=== PATIENT | male | born 1960 | race Caucasian/White ===

== ENCOUNTER 2016-11-10 02:09 | Emergency (ER) | payer BC ==
[2016-11-10 02:18] VITALS: BP 159/95
[2016-11-10] MEDS ORDERED: Sodium Chloride 0.9% 10 ML Syringe FLUSH PRN (02:20)
--- NOTE | 2016-11-10 02:28 | EDM.PDOC ---
ED HPI GENERAL MEDICAL PROBLEM - General Chief Complaint: Flank Pain Stated Complaint: RIGHT SIDE PAIN Time Seen by Provider: 11/10/16 02:17 Source of Information: Reports: Patient History Limitations: Reports: No Limitations - History of Present Illness INITIAL COMMENTS - FREE TEXT/NARRATIVE: The patient presents with right flank pain. This started at home and it is gone now. He has had many stones in the past but none lately. He had some nausea but that is gone. He has no fever, chills, cough, congestion, chest pain or shortness of breath. He has no dysuria or hematuria. Onset: Sudden Duration: Hour(s): Location: Reports: Back (right flank) Quality: Reports: Sharp Severity: Severe Improves with: Reports: None Worsens with: Reports: None Associated Symptoms: Reports: Nausea/Vomiting. Denies: Chest Pain, Cough, Fever /Chills, Shortness of Breath - Related Data Allergies Allergy/AdvReac Type Severity Reaction Status Date / Time Penicillins Allergy Cannot Verified 11/10/16 02:18 Remember Past Medical History Genitourinary History: Reports: Renal Calculus - Past Surgical History GI Surgical History: Reports: Appendectomy Male Surgical History: Reports: None Social & Family History - Tobacco Use Smoking Status *Q: Current Every Day Smoker Years of Tobacco use: 20 Packs/Tins Daily: 0.5 Used Tobacco, but Quit: No Second Hand Smoke Exposure: No - Caffeine Use Caffeine Use: Reports: Coffee - Recreational Drug Use Recreational Drug Use: No ED ROS GENERAL - Review of Systems Review Of Systems: See Below Constitutional: Reports: No Symptoms HEENT: Reports: No Symptoms Respiratory: Reports: No Symptoms Cardiovascular: Reports: No Symptoms Endocrine: Reports: No Symptoms GI/Abdominal: Reports: Nausea. Denies: Abdominal Pain, Vomiting : Reports: Flank Pain (Right) Musculoskeletal: Reports: No Symptoms ED EXAM, RENAL/ - Physical Exam Exam: See Below Exam Limited By: No Limitations General Appearance: Alert, No Apparent Distress Ears: Normal External Exam Nose: Normal Inspection Head: Atraumatic, Normocephalic Neck: Normal Inspection Respiratory/Chest: No Respiratory Distress, Lungs Clear, Normal Breath Sounds Cardiovascular: Regular Rate, Rhythm, No Edema, No Murmur GI/Abdominal: Soft, Non-Tender, No Organomegaly, No Mass Course - Vital Signs Last Recorded V/S: Last Vital Signs Temp 98.1 F 11/10/16 02:13 Pulse 90 11/10/16 02:13 Resp 20 11/10/16 02:13 BP 159/95 H 11/10/16 02:13 Pulse Ox 96 11/10/16 02:13 - Orders/Labs/Meds Orders: Active Orders 24 hr Category Date Time Status Peripheral IV Care [RC] . DIRECTED Care 11/10/16 02:21 Active Abdomen Pelvis wo Cont [CT] Stat Exams 11/10/16 02:20 Taken Sodium Chloride 0.9% [Normal Saline] 1,000 ml Med 11/10/16 02:30 Active IV ASDIRECTED Sodium Chloride 0.9% [Saline Flush] Med 11/10/16 02:20 Active 10 ml FLUSH ASDIRECTED PRN Peripheral IV Insertion Adult [OM.PC] Stat Oth 11/10/16 02:20 Ordered Medication Orders Sodium Chloride (Normal Saline) 1,000 mls @ 125 mls/hr IV ASDIRECTED CHERIE Last Admin: 11/10/16 02:34 Dose: 125 mls/hr Sodium Chloride (Saline Flush) 10 ml FLUSH ASDIRECTED PRN PRN Reason: Keep Vein Open Last Admin: 11/10/16 02:33 Dose: 10 ml Labs: Laboratory Tests 11/10/16 11/10/16 11/10/16 Range/Units 02:35 02:35 03:03 WBC 9.29 H (4.23-9.07) K/mm3 RBC 5.23 (4.63-6.08) M/mm3 Hgb 15.5 (13.7-17.5) gm/L Hct 46.0 (40.1-51.0) % MCV 88.0 (79.0-92.2) fl MCH 29.6 (25.7-32.2) pg MCHC 33.7 (32.2-35.5) g/dl RDW Std Deviation 45.2 H (35.1-43.9) fL Plt Count 185 (163-337) K/mm3 MPV 10.1 (9.4-12.3) fl Neut % (Auto) 59.3 (34.0-67.9) % Lymph % (Auto) 26.0 (21.8-53.1) % [place] % (Auto) 10.2 (5.3-12.2) % Eos % (Auto) 3.1 (0.8-7.0) Baso % (Auto) 0.9 (0.1-1.2) % Neut # (Auto) 5.50 H (1.78-5.38) K/mm3 Lymph # (Auto) 2.42 (1.32-3.57) K/mm3 [place] # (Auto) 0.95 H (0.30-0.82) K/mm3 Eos # (Auto) 0.29 (0.04-0.54) K/mm3 Baso # (Auto) 0.08 (0.01-0.08) K/mm3 Sodium 142 (136-145) mEq/L Potassium 3.8 (3.5-5.1) mEq/L Chloride 106 (98-107) mEq/L Carbon Dioxide 26 (21-32) mEq/L Anion Gap 13.8 (5-15) BUN 12 (7-18) mg/dL Creatinine 1.3 (0.7-1.3) mg/dL Est Cr Clr Drug Dosing 69.19 mL/min Estimated GFR (MDRD) 58 (>60) mL/min BUN/Creatinine Ratio 9.2 L (14-18) Glucose 121 H (74-106) mg/dL Calcium 9.6 (8.5-10.1) mg/dL Total Bilirubin 0.5 (0.2-1.0) mg/dL AST 36 (15-37) U/L ALT 66 H (16-63) U/L Alkaline Phosphatase 55 (46-116) U/L Total Protein 7.8 (6.4-8.2) g/dl Albumin 3.8 (3.4-5.0) g/dl Globulin 4.0 gm/dL Albumin/Globulin Ratio 1.0 (1-2) Lipase 140 (73-393) U/L Urine Color Yellow (Yellow) Urine Appearance Clear (Clear) Urine pH 6.0 (5.0-8.0) Ur Specific [place] 1.025 (1.005-1.030) Urine Protein Negative (Negative) Urine Glucose (UA) Negative (Negative) Urine Ketones Negative (Negative) Urine Occult Blood 2+ H (Negative) Urine Nitrite Negative (Negative) Urine Bilirubin Negative (Negative) Urine Urobilinogen 0.2 (0.2-1.0) Ur Leukocyte Esterase Negative (Negative) Urine RBC 10-20 H (0-5) /hpf Urine WBC 0-5 (0-5) /hpf Ur Epithelial Cells Not Reportable Ur Squamous Epith Cells 5-10 H (0-5) /hpf Urine Bacteria Rare (FEW) /hpf Urine Mucus Few (FEW) /hpf Meds: Medications Generic Name Dose Route Start Last Admin Trade Name Freq PRN Reason Stop Dose Admin Sodium Chloride 1,000 mls @ 125 mls/hr 11/10/16 02:30 11/10/16 02:34 Normal Saline IV 125 mls/hr ASDIRECTED CHERIE Administration Sodium Chloride 10 ml 11/10/16 02:20 11/10/16 02:33 Saline Flush FLUSH 10 ml ASDIRECTED PRN Administration Keep Vein Open - Re-Assessments/Exams Free Text/Narrative Re-Assessment/Exam: 11/10/16 02:27 I ordered an IV NS at 125ml/hr, labs, UA and a CT of his abdomen and pelvis. 11/10/16 03:38 His WBC was slightly elevated at 9.29. His CMP looks good. His UA shows blood and he did pass a stone. His CT shows fatty liver, small nonobstructing renal calculi, 4mm right lower lobe pulmonary nodule, small right renal cyst, and prostetic hypertrophy. He feels good. now. I will discharge him home. Departure - Departure Time of Disposition: 03:40 Disposition: Home, Self-Care 01 Condition: good Clinical Impression: Kidney stone on right side, Ureteric colic - Discharge Information Referrals: Roxann Davalos, [employer]IST [Primary Care Provider] - Forms: ED Department Discharge, Return to Work/School Form Additional Instructions: Drink plenty of fluids. Please return if you are worse. - My Orders Last 24 Hours: My Active Orders 11/10/16 02:20 Abdomen Pelvis wo Cont [CT] Stat Sodium Chloride 0.9% [Saline Flush] 10 ml FLUSH ASDIRECTED PRN Peripheral IV Insertion Adult [OM.PC] Stat 11/10/16 02:21 Peripheral IV Care [RC] . DIRECTED 11/10/16 02:30 Sodium Chloride 0.9% [Normal Saline] 1,000 ml IV ASDIRECTED - Assessment/Plan Last 24 Hours: My Active Orders 11/10/16 02:20 Abdomen Pelvis wo Cont [CT] Stat Sodium Chloride 0.9% [Saline Flush] 10 ml FLUSH ASDIRECTED PRN Peripheral IV Insertion Adult [OM.PC] Stat 11/10/16 02:21 Peripheral IV Care [RC] . DIRECTED 11/10/16 02:30 Sodium Chloride 0.9% [Normal Saline] 1,000 ml IV ASDIRECTED
[2016-11-10] MEDS ORDERED: Sodium Chloride 0.9% 1,000 ML IV SCH (02:30)
--- NOTE | 2016-11-10 08:02 | CT ---
CT abdomen and pelvis Technique: Multiple axial sections were obtained from above the dome of the diaphragm inferiorly through the pubic symphysis. Intravenous and oral contrast not utilized. Study has been performed as a ureteral stone protocol. Findings: Cyst is identified within the upper right kidney measuring approximately 2.3 cm. Two nonobstructing calculi noted within the right kidney with largest measuring about 4 mm. No abnormal calcifications are seen within the left kidney. Ureters show no dilatation. No ureteral calculi are seen. Calcified nodule noted within the right lung base compatible with granuloma. Fatty infiltration seen throughout the liver. Spleen appears within normal limits. Adrenal glands show no nodule. Pancreas is within normal limits. Aorta shows no aneurysmal dilatation. Mild atherosclerotic calcification seen within the aorta and iliac vessels. No retroperitoneal adenopathy or mesenteric abnormalities are seen. No pelvic mass or adenopathy is seen. No free fluid or inflammatory change is seen. There appears to be a short appendix present which is normal. 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 Other less prominent degenerative change is scattered within the spine. Impression: 1. Cyst within the right kidney. Nonobstructing right renal calculi. No ureteral dilatation or ureteral stone is seen. 2. Fatty infiltration within the liver. 3. Incidental calcified granuloma within the right lung base. 4. Other incidental findings. Nothing acute is identified. Diagnostic code #2 I agree with preliminary report issued by [employer] ([employer] preliminary report dictated on 11/10/16, 4:24 AM Central Time)
== END 2016-11-10 04:00 | disposition home or self-care (01) ==
LOC: JD.ED 02:09
DX: N20.2 Calculus of kidney with calculus of ureter (principal); F17.210 Nicotine dependence, cigarettes, uncomplicated; Z90.49 Acquired absence of other specified parts of digestive tract; Z88.0 Allergy status to penicillin
CPT/HCPCS: 36415; 74176; 80053; 81001; 83690; 85025; 96360; 99284; J7040; J7050